=== PATIENT | male | born 1970 | race Caucasian/White ===

== ENCOUNTER 2018-04-09 22:39 | Emergency (ER) | payer SELFPAY ==
[2018-04-09 22:41] VITALS: BP 132/87; PULSE 114; RESP 20; TEMP 36.7; O2SAT 96; BMI 34.9
--- NOTE | 2018-04-09 22:56 | ED.DCSUM_ITS ---
- ER Visit Summary Date of Service: 04/09/18 Chief Complaint: Allergic reaction/rash History of Present Illness: The patient is a 47 M who presents with the above symptoms. Symptoms started yesterday. He noticed a rash on his legs arms and face. His eyes and hands feel like they are swelling. He has been outside and has been around hay but normally he is not allergic to this. He took Benadryl at home. He denies any other new irritants such as soaps, shampoos, lotions or laundry detergents. Physical Examination: Vital signs reviewed. HEENT exam unremarkable. Heart is regular rate and rhythm without murmurs. Lungs are clear to auscultation. Abdomen is soft and nontender. Extremities reveal no edema. Skin exam shows some contact dermatitis of his arms, feet and face. Neurologic exam normal. Test Results: None performed Emergency Department Course and Treatment: Patient is given site Medrol and Pepcid. He is feeling improved. He will go home with prednisone. He will continue Benadryl follow-up with his PCP Treatment Plan: [] Disposition: Discharge Impression: Contact dermatitis This note was generated with [employer] dictation software. It may contain incorrect words, spelling, and punctuation that were not noted in review of the chart prior to signing ED Disposition - Plan for ED Patient: Disposition: Home or Assisted Living Chief Complaint: Allergic Reaction Instructions: ED Allergic Reaction General Other Prescriptions: Prednisone [Deltasone] 40 mg PO DAILY #8 tab Referrals: Care Physician,No Primary [Primary Care Provider] -
[2018-04-09] MEDS: MethylPREDNISolone 125 MG/2 ML Vial IV (23:42)
--- NOTE | 2018-04-09 23:45 | ED.DEP ---
ED Disposition - Plan for ED Patient: Disposition: Home or Assisted Living Chief Complaint: Allergic Reaction Instructions: ED Allergic Reaction General Other Prescriptions: Prednisone [Deltasone] 40 mg PO DAILY #8 tab Referrals: Care Physician,No Primary [Primary Care Provider] -
[2018-04-09 23:46] VITALS: PULSE 93; RESP 18; O2SAT 96
[2018-04-10 00:41] VITALS: BP 153/93; PULSE 83; RESP 16; O2SAT 95
== END 2018-04-10 00:42 | disposition home or self-care (01) ==
PROVIDERS: Emergency Provider Emergency Medicine
DX: L25.9 Unspecified contact dermatitis, unspecified cause (principal); K21.9 Gastro-esophageal reflux disease without esophagitis; Z72.0 Tobacco use
CPT/HCPCS: 96365; 96374; 96375; 99283; J7050; A4216; J3490

== ENCOUNTER 2019-04-23 14:18 | Emergency (ER) | payer SELFPAY ==
[2019-04-23 14:20] VITALS: BP 73/39; PULSE 79; RESP 18; TEMP 36.2; O2SAT 87; BMI 36.3
[2019-04-23 14:28] VITALS: BP 103/64; PULSE 84; RESP 14; O2SAT 99
--- NOTE | 2019-04-23 14:34 | ED.VIS.GEN ---
History of Present Illness Chief Complaint: Allergic Reaction Informant: Patient Onset: Today Context: Sudden Onset Timing: Continuous Current Severity: Severe Maximum Severity: Severe Narrative: The patient presents to the emergency department by squad with anaphylaxis. Patient states he was in his normal state of health. He states he chronic daily headaches. He normally takes ibuprofen. He states that today did not help. Took some Aleve from a friend. He has taken this before without any issue. He states within 20 minutes, he began to have itching and felt nauseated. States he went to get some Benadryl. He states that he felt like his airway was closing. He called squad. On squad got there, the patient had an episode of emesis and then stated that he felt like he was going to pass out. The patient was hypotensive. IV was established he was brought in immediately. He has had reaction to pumpkin about a year ago and had diffuse rash. He is never required the use of an EpiPen. Prior similar symptoms: No Recent Illness/Hospitalization: No Past Medical History - Allergies and Home Meds Allergies/Adverse Reactions: Allergies naproxen [From Aleve] Allergy (Verified 04/23/19 14:19) Other pumpkin Allergy (Verified 04/23/19 14:19) Other Primary Care Physician: Care Physician,No Primary [Primary Care Provider] - Prior records reviewed: Yes Past Medical History: None Surgical History: no surgical history Smoking Status: Current some day smoker Review of Systems General: Denies: Chills, Fever, Sweats Eyes: Denies: Visual changes - bilaterally, Diplopia ENT: Denies: Rhinorrhea, Sore throat Cardiovascular: Denies: Chest pain, Palpitations Respiratory: Denies: Dyspnea, Cough, Dyspnea on exertion Gastrointestinal: Reports: Nausea. Denies: Abdominal pain, Vomiting, Diarrhea, Melena, Hematochezia Genitourinary: Denies: Dysuria, Hematuria, Frequency Musculoskeletal: Denies: Back pain, Extremity Pain Skin: Denies: Rash, Wounds Neurological: Denies: Headache, Weakness, Numbness Allergy: Reports: Uticaria Physical Exam Vital Signs/Narrative: Vital Signs Temp Pulse Resp BP Pulse Ox 04/23/19 14:28 84 14 103/64 99 04/23/19 14:20 97.2 F L 79 18 73/39 L 87 Inital Vital Signs reviewed: Yes General: Well nourished, Well developed, No Acute Distress Head: Normocephalic, Atraumatic Eyes: Perrl, EOMI ENT: Moist mucous membranes, No rhinorrhea Neck: Supple, Nontender, No lymphadenopathy Cardiovascular: Regular rate, Regular rhythm, No murmurs Respiratory: No distress, CTA bilaterally, Chest nontender Abdomen: Soft, Nontender, Nondistended, Normal bowel sounds Back: Nontender, Normal Inspection Extremities: Nontender, No edema Skin: Normal color, Rash Neurological: Alert, Oriented x3, Cranial nerves II-XII grossly intact, Normal Strength, Normal Sensation Psychological: Normal affect, Normal Mood Diagnostic/Tx/Re-eval - Medical Decision Making The patient presents hypotensive and near syncopal. He does have diffuse urticarial rash. He was given IM epinephrine immediately. He was also given Solu-Medrol, Benadryl, Pepcid. With the epinephrine, his blood pressure had improved and his symptoms have improved. Screening labs were obtained and are currently pending. At this point, the patient is going to require 4-hour monitoring given his anaphylaxis. If he continues to maintain stability he has no rebound, I do feel that I can safely be discharged with prednisone and an EpiPen. This will be signed out to the oncoming physician. Impression 1. Anaphylactic reaction ED Disposition - Plan for ED Patient: Instructions: ALLERGIC REACTION, Drug Prescriptions: Prednisone [Deltasone] 60 mg PO DAILY #15 tab Prescription Printed Epi Pen (for allergic rxn) 0.3 mg IM X1 #2 syringe Prescription Printed Famotidine [Pepcid] 20 mg PO BID #28 tab Prescription Printed Referrals: Care Physician,No Primary [Primary Care Provider] -
[2019-04-23] MEDS: MethylPREDNISolone 125 MG/2 ML Vial IV (14:38)
[2019-04-23] MEDS: 0.9% Normal Saline 1,000 ML 1000 ML IV ×2 (14:39→14:41)
[2019-04-23] MEDS: DiphenhydrAMINE 50 MG/ML Syringe IV (14:39)
[2019-04-23 14:54] LABS: Absolute Lymphocyte Count 3.83 X10^3/uL (0.83-4.51); Absolute Neutrophil Count 6.2 X10^3/uL (2.0-7.7); Basophil# 0.04 X10^3/uL; Basophil% 0.4 % (0-1); Eosinophil# 0.15 X10^3/uL; Eosinophils% 1.4 % (0-5); Hematocrit 48.6 % (40-54); Hemoglobin 16.9 g/dL (13.0-16.5); Lymphocyte # 3.83 X10^3/ul (4.0); Lymphocyte % 35.7 % (19-41); Mean Corp Hgb Conc 34.8 g/dL (32-36); Mean Corpuscular Hgb 29.6 pg (27.0-32.0); Mean Corpuscular Volume 85.3 fL (80-94); Mean Platelet Vol. 10.7 fl (6.2-12.0); Monocyte# 0.45 X10^3/uL; Monocyte% 4.2 % (0-10); NRBC Flagged by Analyzer 0 % (0-5); Neutrophil # 6.22 X10^3/uL (2.7-7.7); Neutrophil % 57.8 % (47-70); Platelet Count 365 K/mm3 (150-450); RBC Distribution Width CV 12.4 % (11.6-14.6); RBC Distribution Width SD 38.2 fl (35.1-43.9); White Blood Count 10.7 K/mm3 (4.4-11.0)
[2019-04-23 15:06] LABS: Anion Gap 8 (5-15); BUN 12 mg/dL (7-18); BUN/Creat Ratio 8.1 RATIO (10-20); Calcium,Total 8.2 mg/dL (8.5-10.1); Chloride 109 mmol/L (98-107); Creatinine, Serum 1.48 mg/dL (0.70-1.30); EST Glomerular Filtration Rate 54 mL/min (>60); Est Glom Filt Rate - Afr Amer 65 mL/min (>60); Estimated Creatinine Clearance 63.03 ml/min; Glucose 155 mg/dL (74-106); Potassium 3.2 mmol/L (3.5-5.1); Sodium Level 139 mmol/L (136-145)
[2019-04-23 15:38] VITALS: BP 114/81; PULSE 66; RESP 16; O2SAT 100
[2019-04-23 16:33] VITALS: BP 135/86; PULSE 76; RESP 16; O2SAT 98
[2019-04-23 17:02] VITALS: BP 141/84; PULSE 72; RESP 16; O2SAT 96
--- NOTE | 2019-04-23 17:27 | CM.ED ---
Social Work Consult: Prescription assistance. Informant: RNEwa Met with patient in room. Introduced self as well as social work job titles role. 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 Patient also does not qualify for Medicaid. Patient has no insurance. This social work job titles was able to provide patient with prescription assistance cards as well a GoodRx coupon. Patient stating to be able to afford amount on GoodRx coupon. Answered all questions. Divina GREENWOOD, JAKE
[2019-04-23 17:34] VITALS: BP 141/84; PULSE 66; RESP 16; O2SAT 96
--- NOTE | 2019-04-23 17:34 | ED.RN ---
IV DC'ED, CATHETER INTACT, SMALL GAUZE DRESSING PLACED. DISCHARGE INSTRUCTIONS GIVEN TO AND REVIEWED WITH PATIENT, PATIENT DENIES QUESTIONS OR CONCERNS AND VOICES UNDERSTANDING OF DISCHARGE INSTRUCTIONS. PT AMBULATES OUT OF ROOM WITHOUT DIFFICULTY.
== END 2019-04-23 17:35 | disposition home or self-care (01) ==
PROVIDERS: Emergency Provider Emergency Medicine
DX: T78.2XXA Anaphylactic shock, unspecified, initial encounter (principal); F17.200 Nicotine dependence, unspecified, uncomplicated
CPT/HCPCS: 80048; 85025; 96361; 96372; 96374; 96375; 99285; J7030; J3490

== ENCOUNTER 2020-01-12 05:25 | Day surgery (SDC) | payer OTHER, SELFPAY ==
[2019-12-30 17:53] VITALS: BMI 36.3
[2020-01-12] VITALS (7 sets, daily range): BP systolic 124–149; BP diastolic 82–90; PULSE 61–83; RESP 16; TEMP 35.8–36.6; O2SAT 92–98; BMI 34.9
[2020-01-12] MEDS: Lactated Ringers 1,000 ML 100 ML IV (06:13)
[2020-01-12] MEDS: Cefazolin 2 GM in 0.9% Normal Saline 100 ML IV (07:22)
--- NOTE | 2020-01-12 07:30 | RAD_ITS ---
STUDY: X-RAY - LEFT ELBOW REASON FOR EXAM: Male, 49 years old. LEFT BICEP REPAIR TECHNIQUE: 3 coned-down intraoperative view(s) of the elbow. COMPARISON: None. FINDINGS: Intraoperative imaging provided for biceps tendon repair. RAD/Elbow min 3 Views IMPRESSION: Intraoperative imaging provided for biceps tendon repair. Electronically Signed: Mode Melendez, at 8:54 EDT , Service support ,
[2020-01-12] MEDS: Bupivacaine Mpf 0.5% 30 ML VIAL (07:41)
--- NOTE | 2020-01-12 08:21 | PCM.OPRPT ---
Report of Operation Date of Procedure: 01/12/20 Pre-Operative Diagnosis: Left distal biceps rupture Post-Operative Diagnosis: Left distal biceps rupture Surgery/Procedure Performed:: Left distal biceps repair Description of Surgical Findings:: Stable repair associate professor of economics: Carol Escudero Type of Anesthesia:: General Anesthesiologist: Yassine Horta Special Medications: 2 g Ancef Specimen's removed: none Estimated Blood Loss (mL): 5 Fluids Replaced: 800 mL crystalloid Description of Procedure: On the date of the procedure patient's left upper extremity was marked in the preoperative area. Patient was brought back to the operating room with her transfer the table in the supine position. Anesthesia assumed control of the C-spine and airway and remained controlled throughout the remainder the procedure. Anesthetic was administered. Tourniquet was placed on left upper arm. Left upper extremities and prepped in a sterile fashion. Surgeon scrubbed and upon reentering the room the left upper extremity was draped in a standard repeat fashion. Timeout was called and when agreed upon the side, the site, the procedure to be performed, patient's identity and antibiotics given. A horizontal incision was made 1 cm distal to the antecubital fossa crease. We bluntly dissected down to the subcutaneous tissues. We then found the tract of the biceps. We were able to track proximally and identified the blunted end of the biceps tendon that it avulsed off the radial tubercle. This is identified and cleaned up. After the bulkiness was debrided the Arthrex FiberWire suture was used to make a Krak?w type stitch bringing the 2 suture ends out the end of the tendon. Once this was done the tendon was retracted to the side. We then bluntly dissected down to the radial tubercle. Elbow was supinated. No retractors were placed over the lateral aspect of the radius. We were able to palpate the tubercle. We placed a bicortical pin. Based on our measurement of the graft we then reamed the near cortex. The Endobutton guide was used to advance the Endobutton past the far cortex. The Endobutton was flipped. The tendon was pulled down. Live x-ray was used to verify that the Endobutton had appropriately flipped and was tightened adequately. Once this was done we used a free needle to tie the suture back on on the tendon. Elbow was kept in flexion at this time. We then took the elbow through range of motion no excessive tension on the tendon was fair. 2-0 Vicryl and Monocryl suture was used to close the wound after copious irrigation. Elbow was placed to 90 degrees and a posterior splint was placed after a sterile dressing had been placed. Patient was awakened by anesthesia and transferred the PACU recovery in stable condition. Postop plan: Nonweightbearing for a total of 6 weeks. Splint for 2 weeks. Passive and active range of motion from weeks 2-6. Progressive strengthening after week 6. Grafts/Implants Used: Arthrex Endobutton - Complications No intraoperative complications - Admit VTE Documentation VTE Present on Admission: No VTE Mechan Device Prophylaxis: SCD's, Thigh High MERARY Hose VTE Pharm Prophylaxis ordered?: Yes
[2020-01-12] MEDS: Ketorolac 30 MG/ML Syringe IV (08:40)
[2020-01-12] MEDS: HYDROcodone Bitartrate/Apap 5/325 Tablet PO (09:45)
--- NOTE | 2020-01-12 09:56 | SUR.PHASEII ---
Dr. regalado into see pt. notified of pt. c/o romie wrap feeling tight but fingers warm and mobile.
--- NOTE | 2020-01-12 10:39 | SUR.PHASEII ---
pt. feeling fine dressed and called for wheel chair, when wheel chair got here pt. c/o of feeling dizzy and nauseated. pt. laid back down bp150/95 given queezy. Pt. resting with call vera states just needs to rest a little.
--- NOTE | 2020-01-12 11:10 | SUR.PHASEII ---
attempted to stand pt again states don't feel right pt. laid back down. called sister to make sure knows about pt. Sister said he did the same thing in [place] after had surgery 2 or 3 years ago and ended up having to stay.
[2020-01-12] MEDS: Ondansetron ODT 4 MG Tablet PO (11:28)
== END 2020-01-12 12:08 | disposition home or self-care (01) ==
LOC: SDC 05:25 → AC 05:27
PROVIDERS: Anesthesiology; Referring Provider Specialist; Visit Provider Specialist
PROC: (CPT 24341; principal; 2020-01-12 07:15)
DX: S46.212A Strain of muscle, fascia and tendon of other parts of biceps, left arm, initial encounter (principal); Z11.59 Encounter for screening for other viral diseases; X50.9XXA Other and unspecified overexertion or strenuous movements or postures, initial encounter; Y93.9 Activity, unspecified; Y92.9 Unspecified place or not applicable; Y99.0 Civilian activity done for income or pay; M19.90 Unspecified osteoarthritis, unspecified site; K21.9 Gastro-esophageal reflux disease without esophagitis; E66.3 Overweight; Z68.34 Body mass index [BMI] 34.0-34.9, adult; F17.200 Nicotine dependence, unspecified, uncomplicated
CPT/HCPCS: 01710; 24341; 73080; 76000; 87635; G2023; J7120; J2405; U0003

== ENCOUNTER → 2022-03-21 | Outpatient (CLI) | payer OTHER, SELFPAY ==
[2022-03-21 11:57] LABS: Hematocrit 46.8 % (40-54); Hemoglobin 16.1 g/dL (13.0-16.5); Mean Corp Hgb Conc 34.4 g/dL (32-36); Mean Corpuscular Hgb 29.8 pg (27.0-32.0); Mean Corpuscular Volume 86.7 fL (80-94); Mean Platelet Vol. 11.2 fl (6.2-12.0); Platelet Count 246 K/mm3 (150-450); RBC Distribution Width CV 12.9 % (11.6-14.6); RBC Distribution Width SD 40.2 fl (35.1-43.9); White Blood Count 6.6 K/mm3 (4.4-11.0)
[2022-03-21 12:15] LABS: Anion Gap 6 (5-15); BUN 12 mg/dL (7-18); BUN/Creat Ratio 12.4 RATIO (10-20); Calcium,Total 9.1 mg/dL (8.5-10.1); Chloride 107 mmol/L (98-107); Cholesterol 149 mg/dL (200); Creatinine, Serum 0.96 mg/dL (0.70-1.30); EST Glomerular Filtration Rate 87 mL/min (>60); Est Glom Filt Rate - Afr Amer 105 mL/min (>60); Glucose 96 mg/dL (74-106); High Density Lipoprotein 43 mg/dL; PSA,Total - Annual Screen 0.64 ng/mL (0.00-4.00); Potassium 4.1 mmol/L (3.5-5.1); Sodium Level 139 mmol/L (136-145); Triglycerides 119 mg/dL; Very Low Density Lipoprotein 24 mg/dL (5-40)
== END | disposition home or self-care (01) ==
LOC: MFPLAB 09:50
PROVIDERS: PCP Family Medicine; Referring Provider Family Medicine; Visit Provider Family Medicine
DX: H35.9 Unspecified retinal disorder (principal); Z13.1 Encounter for screening for diabetes mellitus; Z13.220 Encounter for screening for lipoid disorders; Z12.5 Encounter for screening for malignant neoplasm of prostate
CPT/HCPCS: 36415; 80048; 80061; 84153; 85027; G0103

== ENCOUNTER → 2022-04-22 | Outpatient (CLI) | payer OTHER, SELFPAY ==
--- NOTE | 2022-04-22 09:45 | RAD_ITS ---
STUDY: X-RAY - LEFT HAND REASON FOR EXAM: Male, 51 years old. Her MCP pain. TECHNIQUE: 3 view(s) of the hand. COMPARISON: None. FINDINGS: Osteopenia. Mild arthrosis of the radiocarpal articulation. Mild arthrosis of the distal radioulnar joint. Mild arthrosis of the radiocarpal row of the wrist. Moderate arthrosis of the first CMC joint. Mild arthrosis of the MCP and IP joints. The soft tissue structures are unremarkable. 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 No acute abnormality, chondrocalcinosis or erosive changes. Electronically Signed: Humza Hernadez, at 11:23 EDT ,
== END | disposition home or self-care (01) ==
PROVIDERS: PCP Family Medicine; Referring Provider Family Medicine; Visit Provider Family Medicine
DX: M79.642 Pain in left hand (principal)
CPT/HCPCS: 73130